=== PATIENT | female | born 1935 | race Caucasian/White ===

== ENCOUNTER 2020-06-11 20:14 | Emergency (ER) | payer MEDICARE, BC ==
[2020-06-11] MEDS ORDERED: Sodium Chloride 0.9% 10 ML Syringe FLUSH PRN (20:30)
[2020-06-11] MEDS ORDERED: Sodium Chloride 0.45% 1,000 ML IV SCH (20:45)
--- NOTE | 2020-06-11 21:12 | EDM.PDOC ---
ED HPI GENERAL MEDICAL PROBLEM - General Chief Complaint: Lower Extremity Injury/Pain Stated Complaint: [facility] Time Seen by Provider: 06/11/20 20:23 Source of Information: Reports: Patient, RN Notes Reviewed - History of Present Illness INITIAL COMMENTS - FREE TEXT/NARRATIVE: 84 yr old female comes in with L hip pain S/P fall. She tripped, lost her balance, fell on L side with severe L hip pain that radiates to L groin, unable to move leg, stand or walk. No other area of injury. No chest pain or difficulty breathing. Has not been recently ill. Hx Htn. Takes daily 81 mg aspirin in addition to her other meds. - Related Data Allergies Allergy/AdvReac Type Severity Reaction Status Date / Time atropine sulfate Allergy Severe Nausea Verified 06/11/20 21:41 [From ] codeine Allergy Severe Nausea Verified 06/11/20 21:41 esomeprazole magnesium Allergy Severe Hives Verified 06/11/20 21:41 [From Vimovo] hyoscyamine sulfate Allergy Severe Nausea Verified 06/11/20 21:41 [From ] naproxen [From Vimovo] Allergy Severe Hives Verified 06/11/20 21:41 phenobarbital [From ] Allergy Severe Nausea Verified 06/11/20 21:41 scopolamine hydrobromide Allergy Severe Nausea Verified 06/11/20 21:41 [From ] Home Meds: Home Meds Aspirin [Adult Low Dose Aspirin EC] 81 mg PO DAILY 01/22/14 [History] Brady Cit/Mag/D3/Zn/Java Analyst/Arik/Bor [Citracal-Vit D + Magnesium] 500 mg PO DAILY 01/22/14 [History] Doxepin HCl 50 tab PO DAILY 01/22/14 [History] Levothyroxine Sodium 88 mg PO DAILY 01/22/14 [History] Metoprolol/Hydrochlorothiazide [Metoprolol-HCTZ 100-25 MG] 1 tab PO DAILY 01/22/14 [History] Potassium 595 mg PO DAILY 01/22/14 [History] metFORMIN [Glucophage] 500 tab PO DAILY 01/22/14 [History] Acetaminophen [Tylenol Extra Strength] 500 mg PO ASDIRECTED 06/11/20 [History] Celecoxib 200 mg PO DAILY 06/11/20 [History] Famotidine 40 mg PO DAILY 06/11/20 [History] Fish Oil/DHA/EPA [Fish Oil 1,200 MG] 1 each PO DAILY 06/11/20 [History] Lutein 10 mg PO DAILY 06/11/20 [History] Pantoprazole [ProTONIX] 40 mg PO DAILY 06/11/20 [History] Pravastatin [Pravachol] 20 mg PO DAILY 06/11/20 [History] Vitamin A Palmitate [Vitamin A] 10,000 unit PO DAILY 06/11/20 [History] Zinc 100 mg PO DAILY 06/11/20 [History] Past Medical History Gastrointestinal History: Reports: GERD Musculoskeletal History: Reports: Arthritis - Past Surgical History GI Surgical History: Reports: Cholecystectomy, Other (See Below) Other GI Surgeries/Procedures: hiatal hernia repair Female Surgical History: Reports: Hysterectomy Musculoskeletal Surgical History: Reports: Knee Replacement Social & Family History - Tobacco Use Smoking Status *Q: Never Smoker Second Hand Smoke Exposure: No - Caffeine Use Caffeine Use: Reports: Coffee - Recreational Drug Use Recreational Drug Use: No Review of Systems - Review of Systems Review Of Systems: See Below Constitutional: Denies: Chills, Diaphoresis, Fever Mouth/Throat: Reports: No Symptoms Respiratory: Denies: Shortness of Breath, Cough Cardiovascular: Denies: Chest Pain GI/Abdominal: Denies: Abdominal Pain, Nausea, Vomiting Musculoskeletal: Reports: Joint Pain (L hip). Denies: Neck Pain, Back Pain Skin: Reports: No Symptoms Neurological: Denies: Numbness, Tingling, Trouble Speaking ED EXAM, GENERAL - Physical Exam Exam: See Below General Appearance: Alert, Mild Distress Eye Exam: Bilateral Eye: PERRL Head: Atraumatic Neck: Supple Respiratory/Chest: No Respiratory Distress, Lungs Clear, Normal Breath Sounds Cardiovascular: Regular Rate, Rhythm GI/Abdominal: Soft, Non-Tender Extremities: Limited Range of Motion (Pain with motion L hip), Other (Mild tenderness L hip) Neurological: Alert, Oriented, No Motor/Sensory Deficits Skin Exam: Warm, Dry, Normal Color, No Rash Course - Vital Signs Last Recorded V/S: Last Vital Signs Temp 97.2 F 06/11/20 20:18 Pulse 84 06/11/20 20:18 Resp 16 06/11/20 20:18 BP 164/83 H 06/11/20 20:18 Pulse Ox 91 L 06/11/20 20:18 - Orders/Labs/Meds Orders: Active Orders 24 hr Category Date Time Status EKG 12 Lead [EKG Documentation Completion] [RC] STAT Care 06/11/20 20:29 Active Beasley Catheter Insertion [Insert Urinary Catheter] [OM. Care 06/11/20 21:45 Ordered PC] Q24H Peripheral IV Care [RC] . DIRECTED Care 06/11/20 20:30 Active Urinary Catheter Assessment [RC] ASDIRECTED Care 06/11/20 21:36 Active TYPE AND SCREEN [BBK] Stat Lab 06/11/20 20:56 Received Sodium Chloride 0.45% 1,000 ml Med 06/11/20 20:45 Active IV ASDIRECTED Sodium Chloride 0.9% [Saline Flush] Med 06/11/20 20:30 Active 10 ml FLUSH ASDIRECTED PRN Peripheral IV Insertion Adult [OM.PC] Stat Oth 06/11/20 20:29 Ordered Medication Orders Sodium Chloride (Sodium Chloride 0.45%) 1,000 mls @ 150 mls/hr IV ASDIRECTED MAGI Last Admin: 06/11/20 20:37 Dose: 150 mls/hr Documented by: LEE Sodium Chloride (Saline Flush) 10 ml FLUSH ASDIRECTED PRN PRN Reason: Keep Vein Open Last Admin: 06/11/20 20:37 Dose: 10 ml Documented by: LEE Labs: Laboratory Tests 06/11/20 06/11/20 06/11/20 Range/Units 20:56 20:56 20:56 WBC 10.55 H (3.98-10.04) K/mm3 RBC 3.57 L (3.98-5.22) M/mm3 Hgb 11.7 (11.2-15.7) gm/dl Hct 35.6 (34.1-44.9) % MCV 99.7 H (79.4-94.8) fl MCH 32.8 H (25.6-32.2) pg MCHC 32.9 (32.2-35.5) g/dl RDW Std Deviation 51.1 H (36.4-46.3) fL Plt Count 249 D (182-369) K/mm3 MPV 9.0 L (9.4-12.3) fl Neut % (Auto) 71.5 H (34.0-71.1) % Lymph % (Auto) 15.8 L (19.3-51.7) % Ellis % (Auto) 6.9 (4.7-12.5) % Eos % (Auto) 4.9 (0.7-5.8) Baso % (Auto) 0.5 (0.1-1.2) % Neut # (Auto) 7.54 H (1.56-6.13) K/mm3 Lymph # (Auto) 1.67 (1.18-3.74) K/mm3 Ellis # (Auto) 0.73 H (0.24-0.36) K/mm3 Eos # (Auto) 0.52 H (0.04-0.36) K/mm3 Baso # (Auto) 0.05 (0.01-0.08) K/mm3 PT 11.4 (9.7-12.0) SECONDS INR 1.07 Sodium 138 (136-145) mEq/L Potassium 3.4 L (3.5-5.1) mEq/L Chloride 101 (98-107) mEq/L Carbon Dioxide 28 (21-32) mEq/L Anion Gap 12.4 (5-15) BUN 21 H (7-18) mg/dL Creatinine 1.0 (0.55-1.02) mg/dL Est Cr Clr Drug Dosing 30.08 mL/min Estimated GFR (MDRD) 53 (>60) mL/min BUN/Creatinine Ratio 21.0 H (14-18) Glucose 118 H (83-115) mg/dL Calcium 8.8 (8.5-10.1) mg/dL Total Bilirubin 0.4 (0.2-1.0) mg/dL AST 24 (15-37) U/L ALT 23 (14-59) U/L Alkaline Phosphatase 60 (46-116) U/L Total Protein 6.7 (6.4-8.2) g/dl Albumin 3.5 (3.4-5.0) g/dl Globulin 3.2 gm/dL Albumin/Globulin Ratio 1.1 (1-2) COVID-19 ([facility]) (NEGATIVE) 06/11/20 Range/Units 21:35 WBC (3.98-10.04) K/mm3 RBC (3.98-5.22) M/mm3 Hgb (11.2-15.7) gm/dl Hct (34.1-44.9) % MCV (79.4-94.8) fl MCH (25.6-32.2) pg MCHC (32.2-35.5) g/dl RDW Std Deviation (36.4-46.3) fL Plt Count (182-369) K/mm3 MPV (9.4-12.3) fl Neut % (Auto) (34.0-71.1) % Lymph % (Auto) (19.3-51.7) % Ellis % (Auto) (4.7-12.5) % Eos % (Auto) (0.7-5.8) Baso % (Auto) (0.1-1.2) % Neut # (Auto) (1.56-6.13) K/mm3 Lymph # (Auto) (1.18-3.74) K/mm3 Ellis # (Auto) (0.24-0.36) K/mm3 Eos # (Auto) (0.04-0.36) K/mm3 Baso # (Auto) (0.01-0.08) K/mm3 PT (9.7-12.0) SECONDS INR Sodium (136-145) mEq/L Potassium (3.5-5.1) mEq/L Chloride (98-107) mEq/L Carbon Dioxide (21-32) mEq/L Anion Gap (5-15) BUN (7-18) mg/dL Creatinine (0.55-1.02) mg/dL Est Cr Clr Drug Dosing mL/min Estimated GFR (MDRD) (>60) mL/min BUN/Creatinine Ratio (14-18) Glucose (83-115) mg/dL Calcium (8.5-10.1) mg/dL Total Bilirubin (0.2-1.0) mg/dL AST (15-37) U/L ALT (14-59) U/L Alkaline Phosphatase (46-116) U/L Total Protein (6.4-8.2) g/dl Albumin (3.4-5.0) g/dl Globulin gm/dL Albumin/Globulin Ratio (1-2) COVID-19 ([facility]) Negative (NEGATIVE) Meds: Medications Generic Name Dose Route Start Last Admin Trade Name Freq PRN Reason Stop Dose Admin Sodium Chloride 1,000 mls @ 150 mls/hr 06/11/20 20:45 06/11/20 20:37 Sodium Chloride 0.45% IV 150 mls/hr ASDIRECTED MAGI Administration Sodium Chloride 10 ml 06/11/20 20:30 06/11/20 20:37 Saline Flush FLUSH 10 ml ASDIRECTED PRN Administration Keep Vein Open Discontinued Medications Generic Name Dose Route Start Last Admin Trade Name Freq PRN Reason Stop Dose Admin Hydromorphone HCl 0.5 mg 06/11/20 21:26 06/11/20 21:58 Dilaudid IVPUSH 06/11/20 21:27 0.5 mg ONETIME ONE Administration - Re-Assessments/Exams Free Text/Narrative Re-Assessment/Exam: 06/11/20 21:28 On cross table view has what looks like fx line high femoral neck. Not visible on AP pelvis. Clinically her his is fractured. We have no beds available tonight and does not look like bed availability tomorrow morning. We are on full diversion at this time. Pt is requesting transfer to [facility]. We will be sending her ground ambulance. 08:15. Have been told we will likely have a bed open up, there is an expected transfer out so wait to see if that works. 23:45. Informed the expected transfer is not going to happen, at least not for now so will proceed with transfer to [facility]. 06/12/20 00:06 Dr Tavares accepting Orthpedist. [facility] Rapid covid is neg. Will send ground ambulance as planned. Departure - Departure Time of Disposition: 23:58 Disposition: Home, Self-Care 01 Condition: Fair Clinical Impression: Fracture of neck of femur, hip - Discharge Information Referrals: PCP,None [Primary Care Provider] - Forms: ED Department Discharge Sepsis Event Note (ED) - Evaluation Sepsis Screening Result: No Definite Risk - Focused Exam Vital Signs: Vital Signs Temp Pulse Resp BP Pulse Ox 06/11/20 20:18 97.2 F 84 16 164/83 H 91 L - My Orders Last 24 Hours: My Active Orders 06/11/20 20:29 EKG 12 Lead [EKG Documentation Completion] [RC] STAT Peripheral IV Insertion Adult [OM.PC] Stat 06/11/20 20:30 Peripheral IV Care [RC] . DIRECTED Sodium Chloride 0.9% [Saline Flush] 10 ml FLUSH ASDIRECTED PRN 06/11/20 20:45 Sodium Chloride 0.45% 1,000 ml IV ASDIRECTED 06/11/20 20:56 TYPE AND SCREEN [BBK] Stat 06/11/20 21:36 Urinary Catheter Assessment [RC] ASDIRECTED 06/11/20 21:45 Beasley Catheter Insertion [Insert Urinary Catheter] [OM.PC] Q24H - Assessment/Plan Last 24 Hours: My Active Orders 06/11/20 20:29 EKG 12 Lead [EKG Documentation Completion] [RC] STAT Peripheral IV Insertion Adult [OM.PC] Stat 06/11/20 20:30 Peripheral IV Care [] . DIRECTED Sodium Chloride 0.9% [Saline Flush] 10 ml FLUSH ASDIRECTED PRN 06/11/20 20:45 Sodium Chloride 0.45% 1,000 ml IV ASDIRECTED 06/11/20 20:56 TYPE AND SCREEN [BBK] Stat 06/11/20 21:36 Urinary Catheter Assessment [RC] ASDIRECTED 06/11/20 21:45 Beasley Catheter Insertion [Insert Urinary Catheter] [OM.PC] Q24H
--- NOTE | 2020-06-11 21:24 | CR ---
Pelvis and left hip: AP view of the pelvis was obtained as well as AP and frog-leg lateral views of the left hip. Subcapital fracture is noted within the left hip. Alignment appears close to anatomic. Right hip is held in internal rotation which makes evaluation difficult, no gross fracture within the right hip is appreciated. Joint space narrowing is noted within the medial aspects of both hips, worse on the right side. Bony structures are osteopenic. Slight degenerative change is noted within the left sacroiliac joint. Impression: 1. Nondisplaced subcapital fracture within the left hip. 2. Other findings as noted above. Diagnostic code #5 This report was dictated in MDT
--- NOTE | 2020-06-11 21:25 | CR ---
Left knee: AP and crosstable lateral views of the left knee were obtained. Comparison: No previous knee study. Knee prosthesis is seen. Components are aligned. Underlying bony structures are intact. No fracture or other abnormality is appreciated. Impression: 1. Knee prosthesis. 2. Nothing acute is seen on 2 view left knee exam. Diagnostic code #2 This report was dictated in MDT
[2020-06-11] MEDS ORDERED: HYDROmorphone 0.5 MG/0.5 ML Syringe IVPUSH ONE (21:26)
== END 2020-06-12 00:45 | disposition home or self-care (01) ==
LOC: JD.ED 20:14
DX: S72.012A Unspecified intracapsular fracture of left femur, initial encounter for closed fracture (principal); K21.9 Gastro-esophageal reflux disease without esophagitis; Z20.828 Contact with and (suspected) exposure to other viral communicable diseases; Z88.8 Allergy status to other drugs, medicaments and biological substances; Z88.5 Allergy status to narcotic agent; Z90.49 Acquired absence of other specified parts of digestive tract; Z90.710 Acquired absence of both cervix and uterus; Z79.82 Long term (current) use of aspirin; Z79.899 Other long term (current) drug therapy; W01.0XXA Fall on same level from slipping, tripping and stumbling without subsequent striking against object, initial encounter
CPT/HCPCS: 36415; 51702; 73502; 73560; 80053; 85025; 85610; 86850; 86900; 86901; 93005; 96361; 96374; 99285; J1170; J7030; U0002; 93010; 99283

== ENCOUNTER 2024-03-30 13:52 | Inpatient (IN) | payer MEDICARE ==
[2024-03-30] MEDS: Sodium Chloride 0.9% 1,000 ML IV ONE ×2 (14:29→17:12)
[2024-03-30] MEDS: Acetaminophen 325 MG Tab PO ONE (14:29)
[2024-03-30 14:48] LABS: O2 SATURATION VENOUS 90.9; PCO2 VENOUS 45.4 mmHg (41-51); PH,VENOUS 7.39 (7.30-7.40)
[2024-03-30 14:49] LABS: BICARBONATE,VENOUS 26.9 meq/L (22-26)
[2024-03-30 14:54] LABS: APPEARANCE,URINE CLEAR (Clear); BILIRUBIN,URINE 1+ (Negative); COLOR,URINE DARK YELLOW (Yellow); GLUCOSE,URINE NEGATIVE (Negative); KETONES,URINE TRACE (Negative); LEUKOCYTE ESTERASE,URINE NEGATIVE (Negative); NITRITE,URINE NEGATIVE (Negative); OCCULT BLOOD,URINE NEGATIVE (Negative); PH,URINE 5.5 (5.0-8.0); PROTEIN,URINE 1+ (Negative)
[2024-03-30 14:55] LABS: BASOPHILS ABSOLUTE AUTO 0.1 K/mm3 (0.0-0.2); BASOPHILS PERCENT AUTO 0.4 % (0.0-1.0); EOSINOPHILS PERCENT AUTO 0.2 % (0.0-6.0); HEMATOCRIT 40.7 % (37.0-47.0); HEMOGLOBIN 13.4 gm/dl (12.0-16.0); IMMATURE GRAN PERCENT AUTO 1.1 % (0.0-0.4); LYMPHOCYTES ABSOLUTE AUTO 0.9 K/mm3 (1.0-4.8); LYMPHOCYTES PERCENT AUTO 4.9 % (24.0-44.0); MEAN CORPUSCULAR HEMOGLOBIN 28.4 pg (28.0-32.0); MEAN CORPUSCULAR HGB CONC 32.9 g/dl (32.0-36.0); MEAN CORPUSCULAR VOLUME 86.2 fl (83.0-99.0); MEAN PLATELET VOLUME 10.1 fl (9.4-12.3); MONOCYTES ABSOLUTE AUTO 1.5 K/mm3 (0.0-0.8); MONOCYTES PERCENT AUTO 7.8 % (0.0-8.0); NEUTROPHILS ABSOLUTE AUTO 16.2 K/mm3 (1.8-7.7); NEUTROPHILS PERCENT AUTO 85.6 % (41.0-71.0); PLATELET COUNT,PLT 425 K/mm3 (150-400); RED BLOOD CELL COUNT 4.72 M/mm3 (4.10-5.30); WHITE BLOOD CELL COUNT,WBC 18.84 K/mm3 (3.9-11.3)
[2024-03-30 15:07] LABS: A/G RATIO 0.3 (1-2); ALBUMIN 1.4 g/dl (3.4-5.0); ANION GAP 13.3 (5-15); BILIRUBIN TOTAL 0.5 mg/dL (0.2-1.0); BUN/CREATININE RATIO 41.3 (14-18); CALCIUM 8.6 mg/dL (8.5-10.1); EST CRCL DRUG DOSING (CG) 11.64 mL/min; POTASSIUM,K 4.3 mEq/L (3.5-5.1); PROTEIN TOTAL,TP 6.2 g/dl (6.4-8.2)
[2024-03-30 15:11] LABS: LACTIC ACID 2.3 mmol/L (0.4-2.0)
[2024-03-30 15:12] LABS: CREATININE 2.4 mg/dL (0.55-1.02)
[2024-03-30 15:23] LABS: BACTERIA,URINE FEW /hpf (FEW); MUCUS,URINE FEW /hpf (FEW); RBC,URINE 0-5 /hpf (0-5); WBC,URINE 0-5 /hpf (0-5)
[2024-03-30] MEDS: Morphine 4 MG/ML Syringe IVPUSH ONE (19:12)
[2024-03-30] MEDS: Ondansetron 4 MG/2 ML SDV IVPUSH ONE (19:12)
[2024-03-30 19:44] LABS: ANION GAP 9.9 (5-15); CALCIUM 7.6 mg/dL (8.5-10.1); CREATININE 2.1 mg/dL (0.55-1.02); EST CRCL DRUG DOSING (CG) 13.3 mL/min; POTASSIUM,K 3.9 mEq/L (3.5-5.1)
[2024-03-30] MEDS: Sodium Chloride 0.9% 1,000 ML IV SCH (22:24)
[2024-03-30] MEDS: Sodium Chloride 0.9% 500 ML IV ONE (23:56)
[2024-03-31] MEDS: Aspirin 81 MG Tab.EC PO SCH (08:12)
[2024-03-31] MEDS: Doxepin 25 MG Cap PO SCH (08:12)
[2024-03-31] MEDS: Calcium Carbonate/Vitamin D3 600 MG-200 Units Tab PO SCH (08:12)
[2024-03-31] MEDS: Levothyroxine 88 MCG Tab PO SCH (08:13)
[2024-03-31] MEDS: Famotidine 20 MG Tab PO SCH (08:13)
[2024-03-31] MEDS: Hydrochlorothiazide 25 MG Tab PO SCH (08:13)
[2024-03-31] MEDS: metFORMIN 500 MG Tab PO SCH (08:13)
[2024-03-31] MEDS: Pravastatin 20 MG Tab PO SCH (08:14)
[2024-03-31] MEDS: Pantoprazole 40 MG Tab.CR PO SCH (08:14)
[2024-03-31] MEDS: Metoprolol Tartrate 100 MG Tab PO SCH (08:14)
[2024-03-31] MEDS: Benzocaine/Cetylpyridinium/Menthol Lozenge MUCMEM PRN (09:54)
[2024-03-31] MEDS ORDERED: Acetaminophen 325 MG Tab PO PRN (11:31)
[2024-03-31] MEDS: Heparin Sodium 5,000 Units/ML Vial SUBCUT SCH (13:12)
[2024-03-31] MEDS: Lidocaine 4% 1 each Patch TOP SCH (13:12)
[2024-03-31] MEDS: Ketorolac 10 MG Tab PO SCH (13:12)
[2024-03-31] MEDS: Insulin Lispro 100 Unit/ML 3 ML KwikPen SUBCUT SCH (17:47)
[2024-04-01 05:19] LABS: BASOPHILS ABSOLUTE AUTO 0.2 K/mm3 (0.0-0.2); BASOPHILS PERCENT AUTO 0.8 % (0.0-1.0); EOSINOPHILS ABSOLUTE AUTO 0.1 K/mm3 (0.0-0.4); EOSINOPHILS PERCENT AUTO 0.5 % (0.0-6.0); HEMATOCRIT 35.3 % (37.0-47.0); IMMATURE GRAN ABSOLUTE AUTO 0.15 K/mm3 (0.00-0.05); IMMATURE GRAN PERCENT AUTO 0.8 % (0.0-0.4); LYMPHOCYTES ABSOLUTE AUTO 0.8 K/mm3 (1.0-4.8); LYMPHOCYTES PERCENT AUTO 4.4 % (24.0-44.0); MEAN CORPUSCULAR HEMOGLOBIN 28.4 pg (28.0-32.0); MEAN CORPUSCULAR VOLUME 88.7 fl (83.0-99.0); MEAN PLATELET VOLUME 9.9 fl (9.4-12.3); MONOCYTES PERCENT AUTO 5.3 % (0.0-8.0); NEUTROPHILS ABSOLUTE AUTO 16.2 K/mm3 (1.8-7.7); NEUTROPHILS PERCENT AUTO 88.2 % (41.0-71.0); PLATELET COUNT,PLT 353 K/mm3 (150-400); RED BLOOD CELL COUNT 3.98 M/mm3 (4.10-5.30); WHITE BLOOD CELL COUNT,WBC 18.37 K/mm3 (3.9-11.3)
[2024-04-01 05:23] LABS: A/G RATIO 0.2 (1-2); ANION GAP 14.4 (5-15); BILIRUBIN TOTAL 0.4 mg/dL (0.2-1.0); BUN/CREATININE RATIO 60.9 (14-18); CALCIUM 7.7 mg/dL (8.5-10.1); CREATININE 1.1 mg/dL (0.55-1.02); EST CRCL DRUG DOSING (CG) 25.39 mL/min; MAGNESIUM 2.2 mg/dL (1.8-2.4); POTASSIUM,K 4.4 mEq/L (3.5-5.1); PROTEIN TOTAL,TP 5.1 g/dl (6.4-8.2)
[2024-04-01 07:15] LABS: HEMOGLOBIN 11.3 gm/dl (12.0-16.0)
[2024-04-01 07:39] LABS: SLIDE REVIEW ABNORMAL SMEAR
[2024-04-01] MEDS: Gabapentin 300 MG Cap PO SCH (08:23)
[2024-04-01] MEDS ORDERED: Ondansetron 4 MG/2 ML SDV IV PRN (08:55)
[2024-04-01] MEDS ORDERED: Polyethylene Glycol 3350 Powder 17 GM Packet PO PRN (08:55)
[2024-04-01] MEDS ORDERED: Docusate Sodium 100 MG Cap PO PRN (08:55)
[2024-04-01] MEDS ORDERED: Acetaminophen 325 MG Tab PO SCH (09:00)
[2024-04-01] MEDS: Acetaminophen 325 MG Tab PO PRN (10:15)
[2024-04-01] MEDS ORDERED: Sodium Chloride 0.9% 10 ML Syringe FLUSH PRN (11:38)
[2024-04-01] MEDS ORDERED: Sodium Chloride 0.9% 100 ML IV SCH ×2 (11:45)
[2024-04-01] MEDS ORDERED: oxyCODONE 5 MG Tab PO PRN (13:34)
[2024-04-01] MEDS: Iopamidol 755 Mg/ML 100 ML Bottle IVPUSH ONE ×2 (13:39→13:40)
[2024-04-01] MEDS: Sodium Chloride 0.9% 10 ML Syringe FLUSH PRN (13:40)
[2024-04-01] MEDS: Gabapentin 100 MG Cap PO SCH (15:05)
[2024-04-01] MEDS: cefTRIAXone 2 GM in Sodium Chloride 0.9% 100 ML IV SCH (15:05)
[2024-04-01] MEDS: VANCOmycin 1.5 GM/300 ML 1.5 GM in Premix Bag 1 BAG IV ONE (16:16)
[2024-04-01 17:16] LABS: INR 1.32; PROTHROMBIN TIME 13.8 SECONDS (9.7-12.0)
[2024-04-01] MEDS: Acetaminophen 325 MG Tab PO SCH (17:31)
[2024-04-01] MEDS: Heparin Sodium/D5W 25,000 UNITS/500 ML BAG IV SCH (18:14)
[2024-04-01] MEDS: Heparin Sodium 5,000 Units/ML Vial IVPUSH ONE (18:14)
[2024-04-01] MEDS ORDERED: Albumin 25% 12.5 GM in Premix Bag 1 BAG IV SCH (19:00)
[2024-04-01] MEDS: Albumin 25% 25 GM in Premix Bag 1 BAG IV ONE (19:58)
[2024-04-01] MEDS: Lactated Ringers 1,000 ML IV SCH (20:09)
[2024-04-02] MEDS ORDERED: Famotidine 20 MG Tab PO SCH (09:00)
== END 2024-04-01 21:40 | DRG 552 ==
LOC: JD.ED 13:52 → JD.MS 21:20 → OBSVTOIN 04-01 13:55
PROVIDERS: ADMIT Internal Medicine; ATTEND Internal Medicine
DX: M48.061 Spinal stenosis, lumbar region without neurogenic claudication (principal); N17.9 Acute kidney failure, unspecified; M00.9 Pyogenic arthritis, unspecified; I82.419 Acute embolism and thrombosis of unspecified femoral vein; E87.20 Acidosis, unspecified; E86.0 Dehydration; M25.552 Pain in left hip; G89.29 Other chronic pain; K21.9 Gastro-esophageal reflux disease without esophagitis; E11.65 Type 2 diabetes mellitus with hyperglycemia; D72.829 Elevated white blood cell count, unspecified; M47.816 Spondylosis without myelopathy or radiculopathy, lumbar region; M48.05 Spinal stenosis, thoracolumbar region; Z96.642 Presence of left artificial hip joint; Z96.652 Presence of left artificial knee joint; H54.7 Unspecified visual loss; I10 Essential (primary) hypertension; E78.00 Pure hypercholesterolemia, unspecified; M19.90 Unspecified osteoarthritis, unspecified site; R62.7 Adult failure to thrive; R26.2 Difficulty in walking, not elsewhere classified; E88.09 Other disorders of plasma-protein metabolism, not elsewhere classified; R79.89 Other specified abnormal findings of blood chemistry; R09.02 Hypoxemia; Z88.8 Allergy status to other drugs, medicaments and biological substances; Z88.5 Allergy status to narcotic agent; Z79.82 Long term (current) use of aspirin; Z79.84 Long term (current) use of oral hypoglycemic drugs; Z79.899 Other long term (current) drug therapy; Z98.890 Other specified postprocedural states; Z90.49 Acquired absence of other specified parts of digestive tract; Z90.710 Acquired absence of both cervix and uterus; Z86.16 Personal history of COVID-19; Z68.31 Body mass index [BMI] 31.0-31.9, adult
CPT/HCPCS: 36415; 51701; 51798; 71045; 71045-26; 71275; 71275-26; 72170; 72170-26; 72192; 72192-26; 73700-26-LT; 73700-LT; 80048; 80053; 81001; 82803; 82947; 83605; 83735; 84145; 84484; 85025; 85379; 85610; 85730; 87040; 93005; 93010; 93971-26-LT; 93971-LT; 94761; 96361; 96374; 96375; 97110-GP; 97161-GP; 99284; 99285-25; A9270-GY; C1758; J0696; J1644; J1815; J2270; J2405; J3370; J3490; J7030; J7120; P9047; Q9967